=== PATIENT | male | born 1955 | race Caucasian/White ===

== ENCOUNTER 2021-06-01 14:14 | Emergency (ER) | payer OTHER, SELFPAY ==
[2021-06-01 14:15] VITALS: BP 129/85; PULSE 64; RESP 16; TEMP 36.3; O2SAT 100; BMI 31.1
--- NOTE | 2021-06-01 14:46 | RAD_ITS ---
STUDY: X-RAY CHEST REASON FOR EXAM: Male, 65 years old. Fever TECHNIQUE: Single AP portable view of the chest. COMPARISON: None. FINDINGS: The lungs are clear and expanded. There is no demonstrated pleural abnormality. Normal size heart. Normal mediastinum and edenilson. Normal visualized pulmonary arteries. There is atherosclerotic tortuosity of the aortic arch and descending thoracic aorta. There are diffuse degenerative changes of the visualized thoracic spine. There is degenerative osteoarthritis of the bilateral shoulders. There is no demonstrated abnormality of the visualized soft tissue structures of the upper abdomen. RAD/Chest 1 View (Portable) IMPRESSION: Normal x-ray examination of the chest. Electronically Signed: Jamison Santana MD at 14:59 EDT , Service support ,
--- NOTE | 2021-06-01 15:26 | EX.ED.DYSGE1 ---
HPI History of Present Illness Chief Complaint: Fever Informant: patient Onset/Context/Timing Onset: Today Context: Gradual Onset Timing: Continuous Quality: Fever Location: Generalized Worsened by: Nothing Relieved by: Nothing Narrative Narrative: Patient presents with cough and fever at home. Patient states he was diagnosed with COVID-19 approximately 6 days ago. Patient states that he has been taking his temperature at home. Patient states that today his temperature was down to 93 at home. Patient admits to a cough but denies any shortness of breath. Patient denies any nausea or vomiting. Patient denies any chest pain. Patient states he is concerned about developing a pneumonia. PFSH PFSH Allergy/AdvReac Type Severity Reaction Status Date / Time No Known Allergies Allergy Verified 06/01/21 14:14 Social History Smoking Status: Current some day smoker tobacco type: e-cigarettes ROS ROS ED Constitutional Constitutional ED: Reports chills; Denies fever(s) Eyes Eyes: Denies blurry vision or change in vision ENT ENT ED: Denies rhinorrhea or sore throat Cardiovascular Cardiovascular: Denies chest pain or palpitations Respiratory/Chest Respiratory/Chest: Reports cough; Denies dyspnea Gastrointestinal Gastrointestinal: Denies nausea or vomiting Genitourinary Genitourinary ED: Denies dysuria or hematuria Musculoskeletal Musculoskeletal: Denies back pain or neck pain Integumentary Denies abscess or rash Neurologic Neurologic: Denies headache(s) or weakness Allergic/Immunologic Allergic/Immunologic ED: Denies mouth swelling or urticaria EXAM Physical Exam Const Vital Signs: 06/01/21 14:15 Temperature 97.4 F L Temperature Source Temporal Pulse Rate 64 Respiratory Rate 16 Blood Pressure 129/85 H Blood Pressure Mean 99 Pulse Ox 100 Oxygen Delivery Method Room Air Positive well nourished and well developed General Appearance ED: well developed HEENT Reports moist mucous membranes Neck supple and no JVD Resp normal respiratory effort and clear to auscultation bilaterally Cardio regular rate, regular rhythm and no murmurs GI normal to inspection, nondistended, normoactive bowel sounds and non-tender Palpation: soft Extremity normal to inspection General Extremety ED: Negative for edema or tenderness General Extremity: Negative for edema Neuro oriented x3, CN's II-XII intact bilaterally and no sensory deficits noted Sensorium / Orientation: alert Motor Exam: strength 5/5 throughout Psych mental status grossly normal Skin no rashes or lesions noted MDM MDM MDM Narrative Medical decision making narrative: Portable 1 view chest x-ray was obtained. On my interpretation, lung dominique are clear. There is normal cardiac silhouette. Bony thorax is normal. There is no acute process noted. Radiologist also interpreted the x-ray and agrees. Patient was advised of his findings. Patient was advised that he does not have pneumonia. Patient is not hypoxic. Patient was instructed to continue quarantining from COVID-19. Patient was instructed to follow-up with his primary care physician in 5 to 7 days. Patient understood and was agreeable with the plan. All questions were answered. Radiography Chest X-Ray - ED: 1 View, Read by ED Physician, Read by Radiologist and Normal Diagnostic Testing: Clinical Impression(s) from Imaging Studies Chest X-Ray 06/01/21 14:46 IMPRESSION: Normal x-ray examination of the chest. Electronically Signed: Jamison Santana MD at 14:59 EDT , Service support , Discharge Plan Triage Chief Complaint: Fever ED Provider: Richard King Dx/Rx/DC Orders Clinical Impression: COVID-19 Instructions: Coronavirus Disease 2019 (COVID-19): Overview Primary Care Provider: Shon Del Rio Referrals: Shon Del Rio MD [Primary Care Provider] - 3-5 Days Disposition Disposition: Home, Self Care
== END 2021-06-01 15:48 | disposition home or self-care (01) ==
LOC: ED 15:47
PROVIDERS: Emergency Provider Emergency Medicine; PCP Family Medicine
DX: U07.1 COVID-19 (principal); F17.290 Nicotine dependence, other tobacco product, uncomplicated
CPT/HCPCS: 71045; 99282

== ENCOUNTER 2022-09-19 04:13 | Emergency (ER) | payer OTHER, SELFPAY ==
[2022-09-19 04:14] VITALS: BP 139/64; PULSE 70; RESP 15; TEMP 36.6; O2SAT 93; BMI 32.1
--- NOTE | 2022-09-19 04:29 | RAD_ITS ---
STUDY: X-RAY - RIGHT HAND REASON FOR EXAM: Male, 67 years old. pain TECHNIQUE: 4 view(s) of the hand. COMPARISON: None. FINDINGS: Normal radiocarpal articulation. Normal distal radioulnar joint. 4 mm round lucency within the lunate suggestive of a cyst. Normal carpal articulations Normal carpometacarpal articulation of the thumb. Normal second through fifth carpometacarpal joints. Normal metacarpi. Normal metacarpophalangeal joint of the thumb. Marginal osteophyte interphalangeal joint of the thumb. Normal proximal and distal phalanges of the thumb. Normal metacarpophalangeal joints of the second through fifth fingers. Scattered mild joint space narrowing involving the distal interphalangeal joints of the phalanges. Scattered small lucencies within multiple phalanges compatible with cysts. No periarticular erosions. The soft tissue structures are unremarkable. RAD/Hand Min 3 Views IMPRESSION: Osteoarthritis. No acute findings. Electronically Signed: Chris Gamez MD at 5:46 EST Reading Location ID and State: [id number] / , Service support ,
--- NOTE | 2022-09-19 06:26 | EX.ED.DYSGE1 ---
HPI History of Present Illness Chief Complaint: Laceration Narrative Narrative: Patient is a 67-year-old male who is right-hand dominant who presents with a laceration to his right thumb. He states he was at work this evening when it was smashed between 2 metal rollers. He denies any numbness tingling or weakness but states that based on the trauma and concern that he might have a fracture or need sutures was brought in for evaluation. [facility] Medical History (Updated 09/19/22 @ 06:[address] Arik Russo DO) Submandibular abscess Medical History no medical history Home Medications NK 09/19/22 [History Last Taken Unknown] Allergy/AdvReac Type Severity Reaction Status Date / Time No Known Allergies Allergy Verified 09/19/22 04:20 Social History Smoking Status: Current some day smoker tobacco type: e-cigarettes ROS ROS ED Constitutional Constitutional ED: Denies chills or fever(s) ENT ENT ED: Denies sore throat Cardiovascular Cardiovascular: Denies chest pain Respiratory/Chest Respiratory/Chest: Denies cough or dyspnea Gastrointestinal Gastrointestinal: Denies abdominal pain, diarrhea, nausea or vomiting Genitourinary Genitourinary ED: Denies dysuria Musculoskeletal Musculoskeletal: Reports other Details: Positive right thumb pain Integumentary Reports other Details: Right thumb laceration ; Denies rash Neurologic Neurologic: Denies headache(s) or paresthesias Hematologic/Lymphatic Hematologic/Lymphatic: Denies easy bleeding or easy bruising EXAM Physical Exam Const Vital Signs: 09/19/22 04:14 Temperature 97.9 F Temperature Source Temporal Pulse Rate 70 Respiratory Rate 15 Blood Pressure 139/64 H Blood Pressure Mean 89 Pulse Ox 93 Oxygen Delivery Method Room Air Positive well nourished and well developed General Appearance ED: well developed Eyes PERRL and EOMs intact bilaterally Neck supple Resp normal respiratory effort and clear to auscultation bilaterally Cardio regular rate and regular rhythm Extremity Extremity Narrative: Right upper extremity is neurovascular intact; AIN/PIN are intact and normal. Patient has full active range of motion. There is a jagged subcutaneous layer deep laceration along the ulnar portion of the distal thumb that is 2 cm in length. There is minimal ooze of blood without foreign body present. There is a small 10% subungual hematoma noted as well. No ligamentous or tendon injury noted. Remainder of the exam is normal Neuro oriented x3 and CN's II-XII intact bilaterally Sensorium / Orientation: alert Psych mental status grossly normal Skin no rashes or lesions noted Skin Narrative: Laceration to the right thumb as documented above MDM MDM MDM Narrative Medical decision making narrative: Patient presented to the ER with a crush injury to his right thumb. With this there is concern for an open fracture so an x-ray was obtained. X-ray revealed no acute fracture dislocation or foreign body. By exam he also has no ligamentous or tendon injury. His subungual hematoma is also less than 50% so there is no need for trephination. The patient had the wound closed as documented below and following this he is otherwise safe for discharge. Of note we did discuss a tetanus update but patient has low concern for this and does not want a Tdap given Patient had the right thumb cleaned with chlorhexidine. It was anesthetized in digital block fashion using 8 mL of 1% lidocaine without epinephrine. The wound was copiously irrigated with normal saline. Following this five 4-0 Ethilon sutures were placed in simple interrupted fashion. This brought the wound together good approximation. Patient tolerated procedure well without complication. Radiography Diagnostic Testing: Clinical Impression(s) from Imaging Studies Hand X-Ray 09/19/22 04:29 IMPRESSION: Osteoarthritis. No acute findings. Electronically Signed: Chris Gamez MD at 5:46 EST Reading Location ID and State: [id number] / , Service support , X-ray of the right hand reveals no acute fracture dislocation or foreign body Discharge Plan Triage Chief Complaint: Laceration ED Provider: Arik Russo Dx/Rx/DC Orders Clinical Impression: Laceration of right thumb Instructions: ED Laceration, Hand: All Closures Prescriptions: No Action NK Primary Care Provider: Shon Del Rio Referrals: Shon Del Rio MD [Primary Care Provider] - Activity Restrictions/Additional Instructions: Please keep your wound cleaned with soap and water and allow for 4 hours of air exposure a day to help with healing. Please see your family doctor or return to the ER in 7 to 10 days for suture removal Disposition Disposition: Home, Self Care Discharge Date/Time: 09/19/22 06:47
[2022-09-19 06:46] VITALS: O2SAT 99
== END 2022-09-19 06:47 | disposition home or self-care (01) ==
PROVIDERS: Emergency Provider Emergency Medicine; PCP Family Medicine; Visit Provider Emergency Medicine
DX: S61.011A Laceration without foreign body of right thumb without damage to nail, initial encounter (principal); F17.290 Nicotine dependence, other tobacco product, uncomplicated; W23.0XXA Caught, crushed, jammed, or pinched between moving objects, initial encounter
CPT/HCPCS: 12001; 73130; 99282